=== PATIENT | female | born 1975 | race Hispanic/Latino ===

== ENCOUNTER 2023-01-01 15:24 | Outpatient (CLI) | payer OTHER | END 2023-01-01 15:25 | disposition home or self-care (01) | LOC: DTY/OP 15:24 | PROVIDERS: ATTEND Surgery | DX: E66.01 Morbid (severe) obesity due to excess calories (principal) | CPT/HCPCS: 97802 ==

== ENCOUNTER 2023-02-19 15:29 | Outpatient (CLI) | payer OTHER | END 2023-02-19 15:30 | disposition home or self-care (01) | LOC: DTY/OP 15:29 | PROVIDERS: ATTEND Surgery | DX: E66.01 Morbid (severe) obesity due to excess calories (principal) | CPT/HCPCS: 97802 ==

== ENCOUNTER 2023-02-23 15:41 | Outpatient (CLI) | payer OTHER | END 2023-02-23 15:42 | disposition home or self-care (01) | LOC: DTY/OP 15:41 | PROVIDERS: ATTEND Surgery | DX: E66.01 Morbid (severe) obesity due to excess calories (principal) | CPT/HCPCS: 97802 ==

== ENCOUNTER 2023-02-26 11:27 | Outpatient (CLI) | payer OTHER | END 2023-02-26 11:28 | disposition home or self-care (01) | LOC: DTY/OP 11:27 | PROVIDERS: ATTEND Surgery | DX: E66.01 Morbid (severe) obesity due to excess calories (principal) | CPT/HCPCS: 97802 ==

== ENCOUNTER 2023-03-02 13:00 | Outpatient (CLI) | payer OTHER | END 2023-03-02 13:01 | disposition home or self-care (01) | LOC: DTY/OP 13:00 | PROVIDERS: ATTEND Surgery | DX: E66.01 Morbid (severe) obesity due to excess calories (principal) | CPT/HCPCS: 97802 ==

== ENCOUNTER 2023-03-05 11:36 | Outpatient (CLI) | payer OTHER | END 2023-03-05 11:37 | disposition home or self-care (01) | LOC: DTY/OP 11:36 | PROVIDERS: ATTEND Surgery | DX: E66.01 Morbid (severe) obesity due to excess calories (principal) | CPT/HCPCS: 97802 ==

== ENCOUNTER 2023-03-11 15:11 | Outpatient (CLI) | payer OTHER | END 2023-03-11 15:12 | disposition home or self-care (01) | LOC: DTY/OP 15:11 | PROVIDERS: ATTEND Surgery | DX: E66.01 Morbid (severe) obesity due to excess calories (principal) | CPT/HCPCS: 97802 ==

== ENCOUNTER 2023-03-12 14:24 | Outpatient (CLI) | payer OTHER | END 2023-03-12 14:25 | disposition home or self-care (01) | LOC: DTY/OP 14:24 | PROVIDERS: ATTEND Surgery | DX: E66.01 Morbid (severe) obesity due to excess calories (principal) | CPT/HCPCS: 97802 ==

== ENCOUNTER 2023-03-13 10:11 | Outpatient (CLI) | payer OTHER | END 2023-03-13 10:12 | disposition home or self-care (01) | LOC: DTY/OP 10:11 | PROVIDERS: ATTEND Surgery | DX: E66.01 Morbid (severe) obesity due to excess calories (principal) | CPT/HCPCS: 97802 ==

== ENCOUNTER 2023-03-16 15:26 | Outpatient (CLI) | payer OTHER | END 2023-03-16 15:27 | disposition home or self-care (01) | LOC: DTY/OP 15:26 | PROVIDERS: ATTEND Surgery | DX: E66.01 Morbid (severe) obesity due to excess calories (principal) | CPT/HCPCS: 97802 ==

== ENCOUNTER 2023-03-19 13:31 | Outpatient (CLI) | payer OTHER | END 2023-03-19 13:32 | disposition home or self-care (01) | LOC: DTY/OP 13:31 | PROVIDERS: ATTEND Surgery | DX: E66.01 Morbid (severe) obesity due to excess calories (principal) | CPT/HCPCS: 97802 ==

== ENCOUNTER 2023-03-20 11:04 | Outpatient (CLI) | payer OTHER | END 2023-03-20 11:05 | disposition home or self-care (01) | LOC: DTY/OP 11:04 | PROVIDERS: ATTEND Surgery | DX: E66.01 Morbid (severe) obesity due to excess calories (principal) | CPT/HCPCS: 97802 ==

== ENCOUNTER 2023-03-30 10:18 | Outpatient (CLI) | payer OTHER ==
[2023-03-30 12:42] LABS: #Eosinphils 0.5 10x3/uL (0.0-0.5); #Monocytes 0.4 10x3/uL (0.0-1.1); #Neutrophils 6.1 10x3/uL (1.5-8.4); %Basophils 0.4 % (0.0-2.0); %Eosinophils 4.8 % (0.0-6.0); %Lymphocytes 27.5 % (18.0-47.0); %Monocytes 3.9 % (0.0-10.0); %Neutrophils 62.9 % (40.0-75.0); Hemoglobin 13.4 g/dL (12.0-15.5); Mean Corpuscular HGB CONC 30.7 g/dL (32.0-36.0); Mean Corpuscular Hemoglobin 24.9 pg (27.0-33.0); Mean Corpuscular Volume 81.1 fl (81.6-98.3); Mean Platelet Volume 9.7 fl (7.4-10.4); Platelet Count 377 10x3/uL (150-450); RBC Distribution Width 17.5 % (11.5-14.5); Red Blood Cell (RBC) Count 5.39 10x6/uL (3.90-5.03); White Blood Cell (WBC) Count 9.7 10x3/uL (3.5-10.5)
[2023-03-30 13:00] LABS: ALT (SGPT) 58 U/L (8-55); AST (SGOT) 25 U/L (5-34); Albumin 4.1 g/dL (3.5-5.0); Alkaline Phosphatase 112 U/L (40-110); Bilirubin, Direct 0.1 mg/dL (0.1-0.3); Bilirubin, Total 0.3 mg/dL (0.2-1.2); INR-International Normal Ratio 0.9; PTT 29.6 sec (22.0-33.0); Protein, Total 6.8 g/dL (6.0-8.3); Prothrombin Time 10.1 sec (9.5-12.1)
[2023-03-30 13:01] LABS: ALT (SGPT) 58 U/L (8-55); AST (SGOT) 26 U/L (5-34); Alkaline Phosphatase 112 U/L (40-110); Anion Gap 14 mmol/L (10-20); BUN (Urea Nitrogen) 18 mg/dL (7.0-18.7); Bilirubin, Total 0.3 mg/dL (0.2-1.2); Calc. Creatinine Clearance 0 mL/min (70-130); Calcium 9.2 mg/dL (7.8-10.44); Carbon Dioxide 25 mmol/L (22-29); Chloride 103 mmol/L (98-107); Estimated GFR 108; Globulin 2.9 g/dL (2.4-3.5); Glucose 79 mg/dL (70-105); Potassium 4.3 mmol/L (3.5-5.1); Protein, Total 6.9 g/dL (6.0-8.3); Sodium 138 mmol/L (136-145)
[2023-03-31 09:24] LABS: Hemoglobin A1c 6.3 % (4.0-6.0)
== END 2023-03-30 10:19 | disposition home or self-care (01) ==
LOC: LABBT 10:18
PROVIDERS: ATTEND Surgery
DX: Z01.818 Encounter for other preprocedural examination (principal)
CPT/HCPCS: 71046; 80053; 83036; 85025; 85610; 85730; 93005; 93010

== ENCOUNTER 2023-09-17 10:30 | Outpatient (CLI) | payer OTHER | END 2023-09-17 10:31 | disposition home or self-care (01) | LOC: CT 10:30 | PROVIDERS: ATTEND Surgery | DX: K21.9 Gastro-esophageal reflux disease without esophagitis (principal); M54.9 Dorsalgia, unspecified | CPT/HCPCS: 74177 ==